=== PATIENT | female | born 1990 | race African-American/Black ===

== ENCOUNTER 2024-05-17 23:30 | Emergency (ER) | payer OTHER ==
[~2024-05-17] VITALS: Ht 162.6 cm; Wt 97.6 kg
[2024-05-17] MEDS: methylPREDNISolone 125MG 2ML VIAL IV ONE (23:57)
[2024-05-17] MEDS: FAMOTIDINE IV BAG 20 MG in IV 1 EA IV ONE (23:57)
[2024-05-17] MEDS: diphenhydrAMINE 50MG/ML VIAL IV ONE (23:57)
[2024-05-18] MEDS ORDERED: PRED20TA PO (00:26)
[2024-05-18 01:30] VITALS: BP 128/68; TEMP 98.1; O2SAT 99
== END 2024-05-18 01:53 | disposition home or self-care (01) ==
LOC: M ED 23:30
DX: T78.40XA Allergy, unspecified, initial encounter (principal); E03.9 Hypothyroidism, unspecified; Z91.018 Allergy to other foods; Z88.3 Allergy status to other anti-infective agents
CPT/HCPCS: 96374; 96375; 99284; J1200; J2919; S0028

== ENCOUNTER → 2024-08-12 | Outpatient (CLI) | payer OTHER ==
[~2024-08-12] MED LIST: ISOVUE-370 76% 100ML VIAL As Ordered ONE; PRED20TA PO
== END ==
LOC: M RAD 16:28
PROVIDERS: ATTEND Obstetrics & Gynecology
DX: C53.0 Malignant neoplasm of endocervix (principal)
CPT/HCPCS: 74177; Q9967

== ENCOUNTER 2024-08-15 11:19 | Emergency (ER) | payer OTHER ==
[~2024-08-15] VITALS: Ht 162.6 cm; Wt 104.0 kg
[~2024-08-15 11:19] MED LIST changes: -ISOVUE-370 76% 100ML VIAL As Ordered ONE
[2024-08-15] MEDS ORDERED: METH-1387 PO (11:35)
[2024-08-15] MEDS: ACETAMINOPHEN 500 MG TAB PO ONE (13:23)
[2024-08-15] MEDS: KETOROLAC 60MG 2ML VIAL IM ONE (13:24)
[2024-08-15] MEDS ORDERED: METH-1164 PO (13:48)
[2024-08-15] MEDS ORDERED: NAPR-837 PO (13:48)
[2024-08-15 13:59] VITALS: BP 128/69; TEMP 96.9; O2SAT 98
== END 2024-08-15 14:00 | disposition home or self-care (01) ==
LOC: M ED 11:19
DX: M54.31 Sciatica, right side (principal); E05.90 Thyrotoxicosis, unspecified without thyrotoxic crisis or storm; Z85.41 Personal history of malignant neoplasm of cervix uteri; Z91.018 Allergy to other foods; Z88.3 Allergy status to other anti-infective agents
CPT/HCPCS: 93971; 96372; 99283; J1885

== ENCOUNTER 2024-12-23 20:01 | Emergency (ER) | payer OTHER ==
[~2024-12-23] VITALS: Ht 162.6 cm; Wt 113.8 kg
[~2024-12-23 20:01] MED LIST changes: +METH-1164 PO; +METH-1387 PO; +NAPR-837 PO
[2024-12-23] MEDS ORDERED: FAMOTIDINE 20 MG/2 ML VIAL As Ordered ONE (20:07)
[2024-12-23] MEDS ORDERED: EPINEPHrine INJ 1 MG/ML 1ML AMP As Ordered ONE (20:09)
[2024-12-23 20:12] VITALS: TEMP 97.8
[2024-12-23] MEDS: FAMOTIDINE 20 MG/2 ML VIAL IVP ONE (20:20)
[2024-12-23] MEDS: EPINEPHrine INJ 1 MG/ML 1ML AMP IM STA (20:21)
[2024-12-23 20:54] LABS: BASO # 0.0 10^3/uL (0.0-0.2); BASO % 0.4 % (0.0-1.0); EOS # 0.2 10^3/uL (0.0-0.5); EOS % 2.2 % (0.0-3.0); LYMPH # 3.4 10^3/uL (1.5-5.0); LYMPH % 43.5 % (24.0-44.0); MONO # 0.5 10^3/uL (0.0-0.8); MONO % 6.8 % (2.0-8.0); NEUTROPHILS # 3.7 10^3/uL (1.5-8.5); NEUTROPHILS % 46.8 % (36.0-66.0); PLATELET COUNT, AUTOMATED 320 10^3/uL (150-450)
[2024-12-23 21:16] LABS: CALCIUM LEVEL 8.4 MG/DL (8.5-10.1); CARBON DIOXIDE LEVEL 30 MMOL/L (20-31); CHLORIDE LEVEL 102 MMOL/L (98-107); CREATININE FOR GFR 0.85 MG/DL (0.55-1.30); GLOMERULAR FILTRATION RATE > 90.0 (>60); POTASSIUM SERUM 4.9 MMOL/L (3.5-5.1); SODIUM LEVEL 143 MMOL/L (136-145)
[2024-12-23 22:40] VITALS: BP 112/67
[2024-12-23 22:45] VITALS: O2SAT 95
[2024-12-23] MEDS ORDERED: EPIP0.3I2 IM (23:34)
== END 2024-12-24 00:03 | disposition home or self-care (01) ==
LOC: M ED 20:01
DX: T78.02XA Anaphylactic reaction due to shellfish (crustaceans), initial encounter (principal); Y92.512 Supermarket, store or market as the place of occurrence of the external cause; Y93.89 Activity, other specified; J45.909 Unspecified asthma, uncomplicated; E04.1 Nontoxic single thyroid nodule; Z79.899 Other long term (current) drug therapy; Z88.3 Allergy status to other anti-infective agents; Z91.018 Allergy to other foods
CPT/HCPCS: 80048; 85025; 93005; 93041; 94760; 96372; 96374; 96375; 99285; J0166; J1308; J2919